=== PATIENT | male | born 1940 | race Caucasian/White ===

== ENCOUNTER 2017-11-24 15:44 | Observation (INO) | payer MEDICARE, BC ==
--- NOTE | 2017-11-24 15:55 | ERNOTE ---
Trauma/Assault HPI - Narrative Date of Service: 11/24/17 - General Stated Complaint: FALL Time Seen by Provider: 11/24/17 15:47 Source: patient, RN notes reviewed Exam Limitations: no limitations - Immun/Allergies/Home Medications Allergies/Adverse Reactions: Allergies Sulfa (Sulfonamide Antibiotics) Allergy (Mild, Verified 11/24/17 15:58) Hives Home Medications: HOME MEDICATIONS Albuterol Sulfate [Ventolin HFA] 1 puff IH Q6H PRN 01/06/17 [Last Taken Unknown] Aspirin [Aspirin EC] 81 mg PO HS 01/06/17 [Last Taken Unknown] Atorvastatin Calcium [Lipitor] 20 mg PO HS 01/06/17 [Last Taken Unknown] Cholecalciferol (Vitamin D3) [Vitamin D3] 2,000 unit PO DAILY 01/06/17 [Last Taken Unknown] Clopidogrel Bisulfate [Plavix] 75 mg PO DAILY 01/06/17 [Last Taken Unknown] Diltiazem HCl [Diltiazem 24Hr Cd] 240 mg PO HS 01/06/17 [Last Taken Unknown] Fluticasone Propionate [Flovent Hfa] 1 inh IH BID 01/06/17 [Last Taken Unknown] Metoprolol Tartrate [Lopressor] 25 mg PO BID 01/06/17 [Last Taken Unknown] Montelukast Sodium [Singulair] 10 mg PO HS 01/06/17 [Last Taken Unknown] Pantoprazole Sodium [Protonix] 40 mg PO HS 01/06/17 [Last Taken Unknown] Tamsulosin HCl [Flomax] 0.4 mg PO DAILY@1800 01/06/17 [Last Taken Unknown] - History of Present Illness Date (Duration): 11/24/17 Time (Timing): 11:30 Narrative: Jamil is a 77 year old male who [facility] due to a fall, but was sent to the ED for evaluation. Earlier today, he was standing on a ladder, on top of a platform that is approximately 8 feet off the ground, when he lost his footing and fell onto the garage floor. He struck the back of his head and his upper back. His reports initially thinking he was . He is also having swelling and bruising in the dorsum of the right hand, and pain in his left hip. He denies any loss of consciousness. He denies needing pain medication on initial evaluation. Location Occurred: Reports: home Pain Location: Reports: head, back - upper, upper extremity, lower extremity Method of Injury: Reports: fall Severity: moderate Modifying Factors - (Improves): Reports: immobilization, rest. Denies: cold therapy Modifying Factors - (Worsens): Reports: jarring, movement Loss of Consciousness: Reports: no loss of consciousness, remembers the event, remembers coming to hospital Associated Symptoms - Trauma: Reports: trouble walking, muscle spasms. Denies: headache, confusion, dizziness, lightheadedness, seizures, slurred speech, vision changes, neck pain, chest pain, shortness of breath, abdominal pain, nausea, vomiting Review of Systems - Review of Systems Constitutional: Absent: recent illness, fever, chills, malaise EYE: Absent: eye pain, vision changes ENT: Absent: ear discharge, nasal drainage Respiratory: Absent: shortness of breath, cough Cardiology: Absent: chest pain, palpitations, syncope Gastrointestinal/Abdominal: Absent: nausea, vomiting, abdominal pain Genitourinary: Present: no symptoms reported Musculoskeletal: Present: back pain, joint pain, joint swelling. Absent: neck pain Skin: Present: lumps. Absent: rash, lesions Neurological: Absent: headache, dizziness/light-headedness, weakness, numbness, tingling Endocrine: Present: no symptoms reported Hematologic/Lymphatic: Present: easy bruising, easy bleeding Psych: Present: no symptoms reported - Patient's Past Medical History Patient History - Medical: No pertinent hx Patient History - Cardiac/Respiratory: Asthma, Coronary Heart Disease Patient History - Cancer: No Hx of Cancer Patient History - Surgical Procedures: Other - Cardiac stent, Orthopedic - Family History Brother Family History - Medical: Family History - Cardiac/Respiratory: CHF Mother Family History - Medical: Family History - Cardiac/Respiratory: CVA/Stroke, Other Father Family History - Medical: Family History - Cardiac/Respiratory: CVA/Stroke - Social History Living Situations: spouse Psych History: No pertinent hx Does anyone smoke in the home?: No Smoking Status: Never smoker Alcohol Use: none Drug Use: none - Immunizations Hx Pneumococcal Vaccination: More Information Required to Determine History of Influenza Vaccine: More Information Required to Determine Physical Exam - Physical Exam General Appearance: Present: wd/wn, alert, mild distress Head Exam: Present: contusions - Occiput, mild tenderness with palpation. Absent: ecchymosis, raccoon eyes Eye Exam: Normal inspection: bilateral, PERRL: bilateral Ears, Nose, Throat: Present: normal ENT inspection, normal pharynx Neck: Present: normal inspection, nontender, supple, full range of motion. Absent: tender posterior midline Respiratory: Present: no respiratory distress, normal breath sounds, no accessory muscle use, chest tenderness - Posteriorly Cardiovascular/Chest: Present: regular rate, rhythm, no murmur, normal peripheral pulses Gastrointestinal/Abdominal: Present: nontender, nondistended, soft Back Exam: Present: no CVA tenderness, vertebral tenderness - Thoracic, decreased range of motion Extremity Exam: Present: decreased range of motion - Left hip, pain with weight bearing, joint swelling - Right hand 2nd MCP joint. Absent: extremity edema Neurological Exam: Present: alert, oriented, normal mood/affect, no motor/ sensory deficits Skin Exam: Present: normal color, warm/dry Detailed Trauma Exam Best Eye Response (Pravin): (4) open spontaneously Best Verbal Response (Pravin): (5) oriented Best Motor Response (Spr[place]): (6) obeys commands [place] Total: 15 - C-Spine cleared by: Neg C-spine CT & exam ED Progress - Vital Signs Patient's Vital Signs:: I have reviewed the patient's vital signs. - X-Ray X-Ray #1 X-Ray: hand - Right Interpretation: Interp. by hi X-ray Comments: No acute osseous abnormality noted X-Ray #2 X-Ray: hip - Left Interpretation: Interp. by hi X-ray Comments: No acute osseous abnormality noted X-Ray #3 X-Ray: chest Interpretation: Interp. by hi X-ray Comments: No acute cardiopulmonary process identified - CT/Ultrasound CT/Ultrasound Narrative: CT of head, cervical spine, and thoracic spine reviewed - no acute abnormalities identified - Progress/Reassessment Progress:: Improved Progress Note-Subjective: 11/24/17 18:15 Patient in severe pain after returning from his xrays. Moans with each breath. Morphine given - 4mg, then 2 mg IVP with little improvement. Dilaudid 1 mg given and patient starting to appear more comfortable. Dr. Drummond contacted, will admit to observation for pain control. Departure Clinical Impression: Fall from ladder Qualifiers: Encounter type: initial encounter Qualified Code(s): W11.XXXA - Fall on and from ladder, initial encounter Acute thoracic back pain Qualifiers: Back pain laterality: bilateral Qualified Code(s): M54.6 - Pain in thoracic spine - Departure Disposition: [facility] Condition: Stable Critical Care Time - Critical Care Critical Time Spent:: No
[2017-11-24] MEDS ORDERED: DIPHTH,PERTUSS(ACELL),TET VAC 0.5 ML VIAL IM ONE ×2 (16:15→16:32)
[2017-11-24] MEDS ORDERED: ONDANSETRON HCL/PF 2 MG/ML VIAL IV ONE (16:50)
[2017-11-24] MEDS ORDERED: MORPHINE SULFATE 4 MG/ML SYRG IV ONE (16:50)
[2017-11-24] MEDS ORDERED: MORPHINE SULFATE 4 MG/ML SYRG ONE (16:51)
[2017-11-24] MEDS ORDERED: ONDANSETRON HCL/PF 2 MG/ML VIAL ONE (16:51)
[2017-11-24] MEDS ORDERED: MORPHINE SULFATE 2 MG/ML DISP.SYRIN IV ONE (17:15)
[2017-11-24] MEDS ORDERED: MORPHINE SULFATE 2 MG/ML DISP.SYRIN ONE (17:16)
[2017-11-24] MEDS ORDERED: HYDROmorphone HCL 1 MG/ML DISP.SYRIN IV ONE (17:50)
[2017-11-24] MEDS ORDERED: HYDROmorphone HCL 2 MG/ML VIAL ONE ×2 (17:54→18:15)
[2017-11-24] MEDS ORDERED: HYDROmorphone HCL 2 MG/ML VIAL IV ONE (18:16)
[2017-11-24] MEDS ORDERED: METOCLOPRAMIDE HCL 5 MG/ML VIAL IV ONE (18:46)
[2017-11-24] MEDS ORDERED: METOCLOPRAMIDE HCL 5 MG/ML VIAL ONE (18:47)
--- NOTE | 2017-11-24 22:55 | HP ---
Chief Complaint - Chief Complaint Date of Service: 11/24/17 Time of Service: 22:39 Chief Complaint: Thoracic and back pain History of Present Illness: 77 years old white male adm to the hospital with reports of pain secondary to a fall. PMH significant for GERD, asthma, hypertension, lumbar disc herniation and sleep apnea. Pt stated he was putting away his [place] tree earlier today , while standing on a platform 8ft he lost his balance and fell backward hitting his head, right side and right arm on concrete. He denies LOC, shortness of breath or chest pain before or after incident. pt stated he was feeling dizzy and had headache post fall. His found him and brought him to the ER. pt stated he is currently taking plavix as he had stent placed February 2017, secondary to chest pain. In ER C-spine, X-ray right hand and X-ray left hip: No acute osseous abnormality notes on X-rays. CXR: No acute cardiopulmonary process. Plan of care discussed with pt he verbalized understanding and agrees. 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 Patient History - Surgical Procedures: Colonoscopy, Cardiac stent - 2016, Orthopedic - left knee arthroscopy, left and right Achilles tendon repair, lithotripsy Patient History - Other: None - Family History Brother Family History - Medical: Family History - Cardiac/Respiratory: CHF Mother Family History - Medical: Family History - Cardiac/Respiratory: CVA/Stroke, Other Father Family History - Medical: Family History - Cardiac/Respiratory: CVA/Stroke - Social History Living Situations: spouse Psych History: No pertinent hx Does anyone smoke in the home?: No Smoking Status: Never smoker Have you smoked in the past 12 months: No Alcohol Use: none Drug Use: none - Immunizations Immunizations Up to Date: Yes Hx Pneumococcal Vaccination: More Information Required to Determine History of Influenza Vaccine: More Information Required to Determine Review Of Systems (GEN) - Review of Systems Generalized/Overall Review: Present: No Symptoms Reported EENTM: Present: No Symptoms Reported Respiratory: Present: No Symptoms Reported Cardiac: Present: No Symptoms Reported Abdominal: Present: No Symptoms Reported Genitourinary: Present: No Symptoms Reported Musculoskeletal: Present: Joint Pain, Back Pain, Muscle Pain, Other - head pain , right hand pain with swelling Neurological: Present: Headache Skin: Present: No Symptoms Reported Endocrine: Present: No Symptoms Reported Immunizations: IMMUNIZATION HX History of Influenza Vaccine More Information Required Hx Pneumococcal Vaccination More Information Required Allergies/Adverse Reactions: Allergies Allergy/AdvReac Type Severity Reaction Status Date / Time Sulfa (Sulfonamide Allergy Mild Hives Verified 11/24/17 15:58 Antibiotics) Home Medications: HOME MEDICATIONS Albuterol Sulfate [Ventolin HFA] 1 puff IH Q6H PRN 01/06/17 [Last Taken Unknown] Aspirin [Aspirin EC] 81 mg PO HS 01/06/17 [Last Taken Unknown] Atorvastatin Calcium [Lipitor] 20 mg PO HS 01/06/17 [Last Taken Unknown] Cholecalciferol (Vitamin D3) [Vitamin D3] 2,000 unit PO DAILY 01/06/17 [Last Taken Unknown] Clopidogrel Bisulfate [Plavix] 75 mg PO DAILY 01/06/17 [Last Taken Unknown] Diltiazem HCl [Diltiazem 24Hr Cd] 240 mg PO HS 01/06/17 [Last Taken Unknown] Fluticasone Propionate [Flovent Hfa] 1 inh IH BID 01/06/17 [Last Taken Unknown] Metoprolol Tartrate [Lopressor] 25 mg PO BID 01/06/17 [Last Taken Unknown] Montelukast Sodium [Singulair] 10 mg PO HS 01/06/17 [Last Taken Unknown] Pantoprazole Sodium [Protonix] 40 mg PO HS 01/06/17 [Last Taken Unknown] Tamsulosin HCl [Flomax] 0.4 mg PO DAILY@1800 01/06/17 [Last Taken Unknown] Exam - Exam Vital Signs: Vital Signs - Last Taken Temp 36.5 C 11/24/17 19:10 Pulse 53 L 11/24/17 19:10 Resp 16 11/24/17 19:10 BP 128/49 11/24/17 19:10 Pulse Ox 96 11/24/17 19:10 Constitutional: Present: Alert, Oriented x3, Cooperative, No distress, Elderly, Obese ENT Exam: Present: hearing grossly normal, hard of hearing Eye Exam: bilateral eye: normal inspection Neck: Present: non-tender, full range of motion, supple, normal inspection Back Exam: Present: no CVA tenderness, no vertebral tenderness Breasts: Present: Exam deferred Respiratory: Present: chest non-tender, lungs clear, normal breath sounds, no respiratory distress Cardiovascular/Chest: Present: normal peripheral pulses, regular rate, rhythm, no chest tenderness, no edema Peripheral Pulses: dorsalis-pedis (R): 2+, dorsalis-pedis (L): 2+ Abdomen: Present: Normal bowel sounds, soft, nontender, nondistended, no rebound tenderness /Rectal: Present: Exam deferred Extremity: Present: normal range of motion, no pedal edema, no calf tenderness, swelling - right hand, other - decreased range of motion - Left hip, pain with weight bearing, joint swelling - Right hand 2nd MCP joint. Absent: extremity edema Skin Exam: Present: normal color, warm/dry, no cyanosis, other - Dorsum of Right hand with bruising Neurologic: Present: alert, oriented x 3 Appearance: Present: appropriate appearance, appropriate insight Eye contact: Present: cooperative, good eye contact Thoughts: Present: normal thought pattern, no apparent hallucination Assessment/Plan - Narrative Narrative: Acute thoracic back pain- secondary to accidentally falling from ladder pt stated he was putting away Desk when he fell from a platform backwards hitting the back of his head and right side. Right hand hematoma with swelling to fingers. Ice/hot packs,Dilaudid and [place] for pain control Asthma- stable continue with home medications Sleep apnea Continue with cpap Code status: Full GI ppx: Pepcid VTE ppx: Ambulate Time 35 minutes and case discussed with Dr Drummond. Misc: pt stated he isn't taking all home medications and therefore the list need to be reviewed before reconciling. - Assessment/Plan (1) Acute thoracic back pain Problem: Acute Qualifiers: Back pain laterality: bilateral Qualified Code(s): M54.6 - Pain in thoracic spine (2) Fall from ladder Problem: Acute Qualifiers: Encounter type: initial encounter Qualified Code(s): W11.XXXA - Fall on and from ladder, initial encounter (3) Stented coronary artery Problem: Chronic (4) GERD (gastroesophageal reflux disease) Problem: Chronic (5) Asthma Problem: Chronic
[2017-11-24] MEDS ORDERED: HYDROmorphone HCL 1 MG/ML DISP.SYRIN IV PRN (23:00)
[2017-11-24] MEDS ORDERED: HYDROcodone/ACETAMINOPHEN 1 EACH TABLET PO PRN (23:01)
[2017-11-24] MEDS ORDERED: ALBUTEROL SULFATE 200 PUFF INHALER IH PRN (23:02)
[2017-11-25 06:33] LABS: Anion Gap 7.9 mmol/L (6.8-13.8); Calcium * 8.8 mg/dL (7.9-10.9); Carbon Dioxide 29.1 mmol/L (24-32.6); Estimated Creat Clear 70.4
[2017-11-25] MEDS ORDERED: HYDROmorphone HCL 2 MG/ML VIAL IV PRN (07:13)
[2017-11-25] MEDS ORDERED: ALBUTEROL SULFATE 2.5 MG/0.5 ML VIAL.NEB IH PRN (07:19)
[2017-11-25] MEDS ORDERED: SENNOSIDES 8.6 MG TABLET PO ONE (09:01)
[2017-11-25] MEDS: BUDESONIDE 0.5 MG/2 ML VIAL.NEB IH SCH ×2 (09:40→18:06)
[2017-11-25] MEDS: CLOPIDOGREL BISULFATE 75 MG TABLET PO SCH (10:32)
[2017-11-25] MEDS: traMADol HCL 50 MG TABLET PO SCH ×3 (11:46→23:54)
[2017-11-25] MEDS: BISACODYL 5 MG TABLET.DR PO SCH (11:46)
[2017-11-25] MEDS: DEXTROSE 5%-NORMAL SALINE 1,000 ML IV PRN ×2 (11:47→18:46)
[2017-11-25] MEDS: METOPROLOL TARTRATE 25 MG TABLET PO SCH ×2 (12:22→20:48)
[2017-11-25] MEDS: ONDANSETRON HCL/PF 2 MG/ML VIAL IV PRN ×2 (13:33→18:03)
[2017-11-25] MEDS ORDERED: TAMSULOSIN HCL 0.4 MG CAP.SR.24H PO SCH (18:00)
[2017-11-25] MEDS ORDERED: ATORVASTATIN CALCIUM 40 MG TABLET PO SCH (21:00)
[2017-11-25] MEDS ORDERED: MONTELUKAST SODIUM 10 MG TABLET PO SCH (21:00)
[2017-11-25] MEDS ORDERED: ASPIRIN 81 MG TABLET.DR PO SCH (21:00)
[2017-11-25] MEDS ORDERED: METOPROLOL TARTRATE 25 MG TABLET PO SCH (21:00)
[2017-11-25] MEDS ORDERED: DILTIAZEM HCL 240 MG CAP.SR.24H PO SCH (21:00)
[2017-11-25] MEDS ORDERED: PANTOPRAZOLE SODIUM 40 MG TABLET.EC PO SCH (21:00)
[2017-11-25] MEDS ORDERED: ROSUVASTATIN CALCIUM 10 MG TABLET PO SCH (21:00)
--- NOTE | 2017-11-25 21:38 | PN ---
Subjective - Date and Time Seen Date: 11/25/17 Time: 21:22 Subjective Narrative: patient seen today in bed and stated he had just finished walking. She was still having lower back pain with movement but gets better with pain medications. Earlier today he was N/V and was given some zofran after medication and meals that helped a little.He anticipating using the biofreeze and warm pack to his back for additional relief. Objective - Review of Systems Generalized/Overall Review: Reports: No Symptoms Reported EENTM: Reports: Other - Hard of hearing Respiratory: Reports: No Symptoms Reported Cardiac: Reports: No Symptoms Reported Abdominal: Reports: No Symptoms Reported Genitourinary Symptoms: Reports: No Symptoms Reported Musculoskeletal Complaints: Reports: Back Pain, Muscle Pain Neurological: Reports: No Symptoms Reported Skin: Reports: No Symptoms Reported - Vitals Vitals: Last Vital Signs Temp 36.7 C 11/25/17 18:00 Pulse 51 L 11/25/17 20:48 Resp 18 11/25/17 18:16 BP 161/61 11/25/17 20:48 Pulse Ox 99 11/25/17 18:06 - Abnormal Lab Findings Abnormal Lab Findings: Abnormal Lab Results 11/25/17 Range/Units 06:17 Chloride 107 H (97-106) mmol/L BUN/Creatinine Ratio 22.0 H (9.0-21.6) Random Glucose 116 H (70-110) mg/dL - Exam Constitutional: Present: Alert, Oriented x3, Cooperative, Well developed, No distress, Middle aged ENT Exam: Present: hard of hearing Neck: Present: full range of motion Breasts: Present: Exam deferred Respiratory: Present: chest non-tender, lungs clear, normal breath sounds, no respiratory distress Cardiovascular/Chest: Present: normal peripheral pulses, no chest tenderness, no edema, bradycardia Abdomen: Present: Normal bowel sounds, soft, nontender, nondistended, no rebound tenderness /Rectal: Present: Exam deferred Extremity: Present: normal range of motion, non-tender, normal inspection, no pedal edema Skin Exam: Present: other - Right hand bruising Neurologic: Present: normal cerebellar test, alert, oriented x 3, dizzy/light- headedness Appearance: Present: appropriate appearance Eye contact: Present: cooperative, good eye contact Thoughts: Present: normal thought pattern Assessment/Plan Plan Narrative: Concussion pt stated he hit the back of his head during the fall, no open areas noted. Today he had reports of dizziness, episode of nausea, vomiting and headache. Zofran PRN was given earlier and he had some relief Acute thoracic back pain- secondary to accidentally falling from ladder pt stated he was putting away [place] tree when he fell from a platform backwards hitting the back of his head and right side. Right hand hematoma with swelling to fingers. Ice/hot packs,Dilaudid,[place] and ultram for pain control Asthma- stable continue with home medications Sleep apnea Continue with cpap Code status: Full GI ppx: Pepcid VTE ppx: Ambulate Time 20 minutes - Problems/Diagnosis (1) Acute thoracic back pain Problem: Acute Qualifiers: Back pain laterality: bilateral Qualified Code(s): M54.6 - Pain in thoracic spine (2) Fall from ladder Problem: Acute Qualifiers: Encounter type: initial encounter Qualified Code(s): W11.XXXA - Fall on and from ladder, initial encounter (3) Stented coronary artery Problem: Chronic (4) GERD (gastroesophageal reflux disease) Problem: Chronic (5) Asthma Problem: Chronic (6) Concussion Problem: Acute
[2017-11-26] MEDS: DEXTROSE 5%-NORMAL SALINE 1,000 ML IV PRN ×2 (01:53→09:26)
[2017-11-26] MEDS: traMADol HCL 50 MG TABLET PO SCH ×2 (05:37→11:50)
[2017-11-26] MEDS: BUDESONIDE 0.5 MG/2 ML VIAL.NEB IH SCH (06:15)
[2017-11-26] MEDS: ONDANSETRON HCL/PF 2 MG/ML VIAL IV PRN ×2 (07:45→11:49)
[2017-11-26] MEDS ORDERED: CHOLECALCIFEROL 1,000 UNIT CAPSULE PO SCH (09:00)
[2017-11-26] MEDS: METOPROLOL TARTRATE 25 MG TABLET PO SCH (09:15)
[2017-11-26] MEDS: CLOPIDOGREL BISULFATE 75 MG TABLET PO SCH (09:16)
[2017-11-26] MEDS: BISACODYL 5 MG TABLET.DR PO SCH (09:19)
[2017-11-26 09:39] LABS: Albumin * 3.1 gm/dl (3.4-5.0); Anion Gap 7.1 mmol/L (6.8-13.8); BUN/Creatinine Ratio 13.6 (9.0-21.6); Bilirubin, Total 0.3 mg/dL (0.0-1.1); Ca. Corrected For Albumin 8.7 mg/dL (8.4-10.2); Calcium * 8.3 mg/dL (7.9-10.9); Carbon Dioxide 28.7 mmol/L (24-32.6); Potassium 3.8 mmol/L (3.4-4.6); Total Protein 6.6 gm/dL (6.2-8.2)
[2017-11-26 12:44] VITALS: BP 122/45
--- NOTE | 2017-11-26 14:47 | DS ---
(1) Concussion Diagnosis(s): with headache and nausea. Problem: Acute Qualifiers: Encounter type: subsequent encounter Loss of consciousness presence/ duration: without LOC Qualified Code(s): S06.0X0D - Concussion without loss of consciousness, subsequent encounter (2) Acute thoracic back pain Problem: Acute Qualifiers: Back pain laterality: bilateral Qualified Code(s): M54.6 - Pain in thoracic spine (3) GERD (gastroesophageal reflux disease) Problem: Chronic Qualifiers: Esophagitis presence: esophagitis presence not specified Qualified Code(s) : K21.9 - Gastro-esophageal reflux disease without esophagitis (4) CAD (coronary artery disease), [place] coronary artery Diagnosis(s): stent- 2016?? does not recall artery Problem: Chronic Qualifiers: [place] vs. transplanted heart: [place] heart Associated angina: without angina Qualified Code(s): I25.10 - Atherosclerotic heart disease of [place] coronary artery without angina pectoris (5) RACHID on CPAP Problem: Chronic Description of Stay: DATE OF ADMISSION: 11/24/17 DATE OF DISCHARGE: 11/26/17. DIAGNOSTICS: CT HEAD W/O - 11/24/18; CERVICAL SPINE CT-11/24/18; THORACIC SPINE CT-11/24/18. CT HEAD W/O 11/26/17. DISCHARGE SUMMARY: Jamil Fraser is a 77 yr old WM with a H/O CAD with stent placement, HLD, GERD, BPH, who fell off of platform that is approximately 8 feet off the ground and hit the garage floor. He hit his back of his head and upper back in mid thoracic area. He states he lays still for some time but did not have any LOC. He underwent CT of the head W/O, CT of cervical spine and CT of thoracic spine were done which were unremarkable and did not show any acute findings. He was given morphine sulfate 6 mg IV initially followed by hydromorphone 1 mg IV due to significant pain. Patient had a headache, significant nausea and had 2-3 episodes of vomiting. He was initially given hydrocodone and later tramadol after which he threw up. He was given IV fluids and ondansetron with mild improvement in symptoms. A CT head without contrast was repeated on 11/26/17 due to persistent headache and nausea and this was nonacute.. He currently does not want physical therapy as he does have a tens unit at home which he plans to use. He is being discharged in a stable condition and the patient was advised to take tramadol as needed for pain and a low dose of cyclobenzaprine 5 mg at bedtime for back spasms. Procedures Performed: none Discharge Disposition: Home self care Disposition: Home self-care Condition: Undetermined Discharge Diet: Low fat/chol, High Fiber Problem Oriented Discharge Instructions to Patient/Family: Fall Prevention in the Home, [id number] Additional Patient Instructions (free text): TCM appointment Wednesday12/07/17 @ 0945 with . Can take tramadol 50 mg 2-2-3 times a day with food for pain. Can take cyclobenzaprine 5 mg at bedtime for muscle spasms; this can be increased to 10 mg if needed. Please go to ER if nausea/headaches increase in intensity/duration. Prescriptions (Any new or edited meds): Cyclobenzaprine HCl 5 mg PO HS #0.1 tablet traMADol HCL [Ultram] 50 mg PO BIDWM #0.1 tablet Complete Home Medications List: Complete Home Medication List: Albuterol Sulfate [Ventolin HFA] 1 puff IH Q6H PRN 01/06/17 Aspirin [Aspirin EC] 81 mg PO HS 01/06/17 Atorvastatin Calcium [Lipitor] 20 mg PO HS 01/06/17 Cholecalciferol (Vitamin D3) [Vitamin D3] 2,000 unit PO DAILY 01/06/17 Clopidogrel Bisulfate [Plavix] 75 mg PO DAILY 01/06/17 Diltiazem HCl [Diltiazem 24Hr Cd] 240 mg PO HS 01/06/17 Fluticasone Propionate [Flovent Hfa] 220 mg IH BID 01/06/17 Metoprolol Tartrate [Lopressor] 25 mg PO BID 01/06/17 Montelukast Sodium [Singulair] 10 mg PO HS 01/06/17 Pantoprazole Sodium [Protonix] 40 mg PO HS 01/06/17 Tamsulosin HCl [Flomax] 0.4 mg PO DAILY@1800 01/06/17 Cyclobenzaprine HCl 5 mg PO HS #0.1 tablet 11/26/17 traMADol HCL [Ultram] 50 mg PO BIDWM #0.1 tablet 11/26/17
== END 2017-11-26 18:25 | disposition home or self-care (01) ==
LOC: ER 15:44 → MS 18:33
PROVIDERS: ADMIT Internal Medicine; ATTEND Internal Medicine
DX: Y93.89 Activity, other specified; W17.89XA Other fall from one level to another, initial encounter; G47.33 Obstructive sleep apnea (adult) (pediatric); Z23 Encounter for immunization; Y92.008 Other place in unspecified non-institutional (private) residence as the place of occurrence of the external cause; S06.0X0A Concussion without loss of consciousness, initial encounter; Y99.8 Other external cause status; K21.9 Gastro-esophageal reflux disease without esophagitis; I25.10 Atherosclerotic heart disease of native coronary artery without angina pectoris; M54.6 Pain in thoracic spine; Z68.27 Body mass index [BMI] 27.0-27.9, adult
CPT/HCPCS: 36415; 70450; 71046; 72125; 72128; 73130; 73502; 80048; 80053; 90471; 90715; 94640; 96365; 96366; 96375; 96376; 97116; 97161; 99285; G0378; G8978; G8979; G8980; J2405

== ENCOUNTER 2017-11-28 22:19 | Emergency (ER) | payer MEDICARE, BC ==
--- NOTE | 2017-11-28 23:40 | ERNOTE ---
Abdominal HPI - Narrative Date of Service: 11/28/17 - General Chief Complaint: Constipation Time Seen by Provider: 11/28/17 22:27 Source: patient, family Exam Limitations: no limitations - Immun/Allergies/Home Medications Immunizatons: IMMUNIZATION HX Immunizations Up to Date Yes History of Influenza Vaccine More Information Required Hx Pneumococcal Vaccination More Information Required Allergies/Adverse Reactions: Allergies Sulfa (Sulfonamide Antibiotics) Allergy (Mild, Verified 11/28/17 22:26) Hives Home Medications: HOME MEDICATIONS Albuterol Sulfate [Ventolin HFA] 1 puff IH Q6H PRN 01/06/17 [Last Taken Unknown] Aspirin [Aspirin EC] 81 mg PO HS 01/06/17 [Last Taken Unknown] Atorvastatin Calcium [Lipitor] 20 mg PO HS 01/06/17 [Last Taken Unknown] Cholecalciferol (Vitamin D3) [Vitamin D3] 2,000 unit PO DAILY 01/06/17 [Last Taken Unknown] Clopidogrel Bisulfate [Plavix] 75 mg PO DAILY 01/06/17 [Last Taken Unknown] Diltiazem HCl [Diltiazem 24Hr Cd] 240 mg PO HS 01/06/17 [Last Taken Unknown] Fluticasone Propionate [Flovent Hfa] 220 mg IH BID 01/06/17 [Last Taken Unknown] Metoprolol Tartrate [Lopressor] 25 mg PO BID 01/06/17 [Last Taken Unknown] Montelukast Sodium [Singulair] 10 mg PO HS 01/06/17 [Last Taken Unknown] Pantoprazole Sodium [Protonix] 40 mg PO HS 01/06/17 [Last Taken Unknown] Tamsulosin HCl [Flomax] 0.4 mg PO DAILY@1800 01/06/17 [Last Taken Unknown] Cyclobenzaprine HCl 5 mg PO HS #0.1 tablet 11/26/17 [Last Taken Unknown] traMADol HCL [Ultram] 50 mg PO BIDWM #0.1 tablet 11/26/17 [Last Taken Unknown] - History of Present Illness Narrative: patient was recently in hospital for upper back injury and has been on pain meds has not had bm for three days and feels constipated Timing: constant, getting worse Quality: moderate, fullness, throbbing Activities at Onset: none Modifying Factors - (Improves): Present: analgesics Modifying Factors - (Worsens): Present: movement Associated Symptoms: Present: back pain Prior Abdominal Problems: Present: recent trauma, other - recent injury from fall, with pain to mid thoracic Review of Systems - Review of Systems Constitutional: Present: See HPI, weakness, fatigue, malaise EYE: Present: no symptoms reported ENT: Present: no symptoms reported Respiratory: Present: no symptoms reported Cardiology: Present: no symptoms reported Gastrointestinal/Abdominal: Present: See HPI, nausea, constipation Genitourinary: Present: decreased urinary output Musculoskeletal: Present: See HPI, back pain, other - pain mid thoracic area Skin: Present: no symptoms reported Neurological: Present: no symptoms reported Endocrine: Present: no symptoms reported Hematologic/Lymphatic: Present: no symptoms reported Psych: Present: no symptoms reported All Other Systems: All systems neg except as marked - Narrative Narrative: unremarkable - Patient's Past Medical History Patient History - Medical: No pertinent hx, GERD, Other Patient History - Cardiac/Respiratory: Asthma, Coronary Heart Disease, Hyperlipidemia, CPAP/BiPAP Home Use, Sleep Apnea, Other Patient History - Cancer: Other Patient History - Surgical Procedures: Colonoscopy, Cardiac stent, Orthopedic Patient History - Other: None - Family History Family History:: no untoward family reactions to anesthesia, no familial bleeding tendencies, no family history of clotting disorders, no family history of premature - Family History Brother Family History - Medical: Family History - Cardiac/Respiratory: No pertinent hx, CHF Family History - Cancer: No pertinent family hx Mother Family History - Medical: Family History - Cardiac/Respiratory: No pertinent hx, CVA/Stroke, Other Family History - Cancer: No pertinent family hx Father Family History - Medical: Family History - Cardiac/Respiratory: No pertinent hx, CVA/Stroke Family History - Cancer: No pertinent family hx - Social History Living Situations: home Abuse History: No History of abuse Psych History: No pertinent hx Does anyone smoke in the home?: No Smoking Status: Former smoker Have you smoked in the past 12 months: No Do you dip or chew tobacco: No Alcohol Use: occasionally Drug Use: none - Immunizations Immunizations Up to Date: Yes Hx Pneumococcal Vaccination: More Information Required to Determine History of Influenza Vaccine: More Information Required to Determine Physical Exam - Physical Exam General Appearance: Present: moderate distress Head Exam: Present: normal inspection, no evidence of injury Eye Exam: Normal inspection: bilateral, PERRL: bilateral, EOMI: bilateral Ears, Nose, Throat: Present: normal ENT inspection Neck: Present: normal inspection, nontender Respiratory: Present: no respiratory distress, normal breath sounds, no accessory muscle use, chest nontender, lungs clear Cardiovascular/Chest: Present: regular rate, rhythm, no murmur, normal peripheral pulses Peripheral Pulses: N=norm/S=strong/W=weak/B=bound/A=absent: Carotid (R): Normal , Carotid (L): Normal, Radial (R): Normal, Radial (L): Normal, Femoral (R): Normal, Femoral (L): Normal, Dorsalis-pedis (R): Normal, Dorsalis-pedis (L): Normal Gastrointestinal/Abdominal: Present: abnormal bowel sounds, distended Back Exam: Present: vertebral tenderness, other - pain and muscle spasm mid thoracic regioon Neurological Exam: Present: alert, oriented, normal mood/affect, no motor/ sensory deficits DTR: N=norm/NB=norm/brisk/A=abs/DD=dull/dimin/HC=hyperactive: Bicep (R): Normal , Bicep (L): Normal, Tricep (R): Normal, Tricep (L): Normal, Knee (R): Normal, Knee (L): Normal, Ankle (R): Normal, Ankle (L): Normal Skin Exam: Present: normal color, warm/dry Lymphatic Exam: Present: no adenopathy ED Progress - Date and Time Seen: Date and Time: 11/29/17 00:39 patient improved,patinent had large bm am feel better, to be dismissed - Results and Orders Patient's Lab Results:: I have reviewed the patient's lab results. - Vital Signs Patient's Vital Signs:: I have reviewed the patient's vital signs. Vital Signs: Vital Signs 11/28/17 22:23 Temperature 36.8 C Pulse Rate 68 Respiratory 17 Rate Blood Pressure 158/63 O2 Sat by Pulse 98 Oximetry - Progress/Reassessment Chief Complaint: Constipation Progress:: Improved - Transfer of Care Expected Disposition: Discharge Plan - Plan Plan: to be discharged Departure Clinical Impression: Constipation - Departure Disposition: Home self-care Condition: Fair Instructions: Constipation, Adult, [id number], Fecal Impaction Referrals: Ian Kohli MD [Primary Care Provider] -
[2017-11-29 00:23] LABS: Urine Bilirubin Negative (NEGATIVE); Urine Blood Negative /ul (NEGATIVE); Urine Ketone Negative (NEGATIVE); Urine Nitrite Negative (NEGATIVE); Urine Protein Negative (NEGATIVE); Urine Urobilinogen Normal (NORMAL)
[2017-11-29 00:29] LABS: Urine Appearance Clear; Urine Color Yellow
[2017-11-29 00:30] LABS: Urine Bacteria TRACE; Urine Mucus Few - 1+; Urine RBC None Seen /hpf (0-5); Urine WBC 0-5 /hpf (0-5)
[2017-11-29 00:55] VITALS: BP 137/65
== END 2017-11-29 00:54 | disposition home or self-care (01) ==
LOC: ER 22:19
PROC: BT20ZZZ Computerized Tomography (CT Scan) of Bladder (ICD-10-PCS; principal; 2017-11-28)
DX: K59.00 Constipation, unspecified (principal); Z87.891 Personal history of nicotine dependence; Z95.5 Presence of coronary angioplasty implant and graft; K21.9 Gastro-esophageal reflux disease without esophagitis; I10 Essential (primary) hypertension; Z99.81 Dependence on supplemental oxygen; E78.5 Hyperlipidemia, unspecified; I50.9 Heart failure, unspecified; J45.909 Unspecified asthma, uncomplicated